=== PATIENT | female | born 1995 | race Caucasian/White ===

== ENCOUNTER 2019-05-26 01:07 | Inpatient (IN) | payer MEDICAID ==
[2019-05-26] MEDS ORDERED: Ondansetron 4 MG/2 ML SDV IVPUSH PRN (01:48)
[2019-05-26] MEDS ORDERED: Sodium Chloride 0.9% 10 ML Syringe FLUSH PRN (01:48)
[2019-05-26] MEDS ORDERED: Oxytocin/Lactated Ringers 10 UNIT/1,000 ML BAG IV SCH (02:00)
[2019-05-26] MEDS ORDERED: Lactated Ringers 1,000 ML IV SCH (02:00)
[2019-05-26] MEDS ORDERED: Nalbuphine 10 MG/ML Syringe IVPUSH PRN (03:44)
--- NOTE | 2019-05-26 06:43 | PCM.LDHP ---
L&D History of Present Illness - General Date of Service: 05/26/19 Admit Problem/Dx: Patient Status Order with Admit Dx/Problem 05/26/19 01:08 Patient Status [ADT] Routine 05/26/19 01:48 Patient Status [ADT] Routine Admission Diagnosis/Problem Admission Diagnosis/Problem Source of Information: Patient History Limitations: Reports: No Limitations - History of Present Illness Introduction:: Patient is a 24 y/o admitted at 39 5/7 wks in labor. Doing well otherwise - Related Data Allergies/Adverse Reactions: Allergies Allergy/AdvReac Type Severity Reaction Status Date / Time Penicillins Allergy Cannot Verified 05/26/19 01:13 Remember Home Medications: Home Meds Iron 18 mg PO 05/26/19 [History] Vits #93/Iron Fum/FA [ Formula Tablet] 05/26/19 [History] Past Medical History - Past Health History Medical/Surgical History: Denies Medical/Surgical History HEENT History: Reports: Impaired Vision, Other (See Below) Other HEENT History: wears glasses [employer] History: Reports: : 1 Para: 0 LMP (Approximate): Social & Family History - Tobacco Use Smoking Status *Q: Former Smoker Used Tobacco, but Quit: Yes Month/Year Tobacco Last Used: 09/2018 - Alcohol Use Alcohol Use History: No - Recreational Drug Use Recreational Drug Use: No H&P Review of Systems - Review of Systems: Review Of Systems: See Below General: Reports: No Symptoms Pulmonary: Reports: No Symptoms Cardiovascular: Reports: No Symptoms Gastrointestinal: Reports: Abdominal Pain Genitourinary: Reports: No Symptoms Musculoskeletal: Reports: No Symptoms Psychiatric: Reports: No Symptoms Neurological: Reports: No Symptoms L&D Exam - Exam Exam: See Below - Vital Signs Vital Signs: Last Vital Signs Temp 37.4 C 05/26/19 01:08 Pulse 76 05/26/19 01:08 Resp 14 05/26/19 01:08 BP 135/66 05/26/19 01:08 Pulse Ox 98 05/26/19 01:08 Weight: 66.451 kg - OB Specific Contraction Intensity: Moderate to Strong Movement: Active Heart Tones: Present Heart Tones per Min: 135 Heart Rate (FHR) Variability: Moderate (6-25 bmp) Presentation: Right Occiput Posterior (ROP) - Taylor Score Taylor Score Cervix Position: Anterior Taylor Score Consistency: Soft Taylor Score Effacement: >80% Taylor Score Dilation: > 5 cm Taylor Score Infant's Station: -1 ,0 Taylor Score Total: 12 - Exam General: Alert, Oriented, Cooperative Lungs: Clear to Auscultation, Normal Respiratory Effort Cardiovascular: Regular Rate, Regular Rhythm GI/Abdominal Exam: Soft, Non-Tender Genitourinary: Normal external exam Extremities: Normal Inspection Skin: Warm, Dry, Intact - Patient Data Lab Results Last 24 hrs: Laboratory Results - last 24 hr 05/26/19 Range/Units 02:00 WBC 14.40 H (3.98-10.04) K/mm3 RBC 3.84 L (3.98-5.22) M/mm3 Hgb 10.7 L (11.2-15.7) gm/dl Hct 32.5 L (34.1-44.9) % MCV 84.6 (79.4-94.8) fl MCH 27.9 (25.6-32.2) pg MCHC 32.9 (32.2-35.5) g/dl RDW Std Deviation 41.5 (36.4-46.3) fL Plt Count 323 (182-369) K/mm3 MPV 9.3 L (9.4-12.3) fl Neut % (Auto) 76.5 H (34.0-71.1) % Lymph % (Auto) 11.7 L (19.3-51.7) % Pratt % (Auto) 10.6 (4.7-12.5) % Eos % (Auto) 0.8 (0.7-5.8) Baso % (Auto) 0.1 (0.1-1.2) % Neut # (Auto) 11.02 H (1.56-6.13) K/mm3 Lymph # (Auto) 1.68 (1.18-3.74) K/mm3 Pratt # (Auto) 1.52 H (0.24-0.36) K/mm3 Eos # (Auto) 0.12 (0.04-0.36) K/mm3 Baso # (Auto) 0.01 (0.01-0.08) K/mm3 Manual Slide Review Abnormal smear Result Diagrams: 05/26/19 02:00 - Problem List (1) 39 weeks gestation of SNOMED Code(s): 69165640 ICD Code: Z3A.39 - 39 WEEKS GESTATION OF Status: Acute Current Visit: Yes (2) Normal labor SNOMED Code(s): 84439050 ICD Code: O80 - ENCOUNTER FOR FULL-TERM UNCOMPLICATED DELIVERY; Z37.9 - OUTCOME OF DELIVERY, UNSPECIFIED Status: Acute Current Visit: Yes (3) Rubella non-immune status, antepartum SNOMED Code(s): 272449410 ICD Code: O99.89 - OTH DISEASES AND CONDITIONS COMPL PREG/CHLDBRTH; Z28.3 - UNDERIMMUNIZATION STATUS Status: Acute Current Visit: Yes Problem List Initiated/Reviewed/Updated: Yes Orders Last 24hrs: Active Orders 24 hr Category Date Time Status Patient Status [ADT] Routine ADT 05/26/19 01:48 Active Activity as Tolerated [RC] PFP Care 05/26/19 01:48 Active Communication Order [RC] ASDIRECTED Care 05/26/19 01:48 Active Non Stress Test [RC] PER UNIT ROUTINE Care 05/26/19 01:08 Active Notify Provider [RC] PFP Care 05/26/19 01:48 Active Notify Provider [RC] PRN Care 05/26/19 01:48 Active Peripheral IV Care [RC] . DIRECTED Care 05/26/19 01:48 Active Vital Signs [RC] PER UNIT ROUTINE Care 05/26/19 01:08 Active Regular Diet [DIET] Diet 05/26/19 Breakfast Active BLOOD BANK HOLD SPECIMEN [BBK] Routine Lab 05/26/19 01:48 Ordered RAPID PLASMA REAGIN,RPR [CHEM] Routine Lab 05/26/19 02:00 Received Lactated Ringers [Ringers, Lactated] 1,000 ml Med 05/26/19 02:00 Active IV ASDIRECTED Nalbuphine [Nubain] Med 05/26/19 03:44 Active 5 mg IVPUSH Q2H PRN Ondansetron [Zofran] Med 05/26/19 01:48 Active 4 mg IVPUSH Q4H PRN Oxytocin/Lactated Ringers [Pitocin in LR 10 Units/1,000 Med 05/26/19 02:00 Active ML] 10 unit in 1,000 ml IV .CONTINUOUS Sodium Chloride 0.9% [Saline Flush] Med 05/26/19 01:48 Active 10 ml FLUSH ASDIRECTED PRN Electronic Heart Tones Ext w TOCO [WOMSER] Oth 05/26/19 01:48 Ordered Routine Electronic Heart Tones Internal [WOMSER] Per Unit Oth 05/26/19 01:48 Ordered Routine Peripheral IV Insertion Adult [OM.PC] Routine Oth 05/26/19 01:48 Ordered Resuscitation Status Routine Resus Stat 05/26/19 01:08 Ordered Medication Orders Lactated Ringer's (Ringers, Lactated) 1,000 mls @ 100 mls/hr IV ASDIRECTED MELINA Oxytocin/Lactated Ringer's (Pitocin In Lr 10 Units/1,000 Ml) 10 unit in 1,000 mls @ 500 mls/hr IV .CONTINUOUS MELINA Nalbuphine HCl (Nubain) 5 mg IVPUSH Q2H PRN PRN Reason: Pain (severe 7-10) Last Admin: 05/26/19 03:50 Dose: 5 mg Ondansetron HCl (Zofran) 4 mg IVPUSH Q4H PRN PRN Reason: Nausea/Vomiting Sodium Chloride (Saline Flush) 10 ml FLUSH ASDIRECTED PRN PRN Reason: Keep Vein Open Assessment/Plan Comment:: * Labs done * GBS negative * Plans unmedicated delivery * Anticipate * MMR after delivery
[2019-05-26] MEDS ORDERED: Lidocaine 1% 50 ML MDV ONE (07:22)
--- NOTE | 2019-05-26 07:47 | PCM.DEL ---
L & D Note - General Info Date of Service: 05/26/19 - Delivery Note Labor: Spontaneous Delivery Outcome: Livebirth Delivery Method: Spontaneous Vaginal Delivery-Single Delivery Mode: Spontaneous Presentation: Right Occiput Posterior (ROP) Nuchal Cord: None Anesthesia Type: None Amniotic Fluid Description: Clear Episiotomy Type: None Laceration: 2nd Degree, Perineal Suture type: Vicryl Suture size: 2-0 Placenta: Intact, Spontaneous Cord: 3 Vessels Estimated Blood Loss: 200 Resuscitation Needed: Yes : Bulb Syringe, Stimulated, Warmed, [place] Used, Warmer Used Delivery Comments (Free Text/Narrative):: Patient found to be complete and began pushing. With maternal pushing effort head delivered from ROP presentation. No nuchal cord present. With gentle downward traction shoulders and body delivered. Infant placed on maternal abdomen. Cord clamped and cut. Cord blood obtained. Placenta allowed time to separate and expelled intact. Inspection of perineum showed a 2nd degree laceration which was repaired with a 2-0 vicryl in the typical fashion - General Info Date of Service: 05/26/19 - Patient Data Vitals - Most Recent: Last Vital Signs Temp 37.4 C 05/26/19 01:08 Pulse 76 05/26/19 01:08 Resp 14 05/26/19 01:08 BP 135/66 05/26/19 01:08 Pulse Ox 98 05/26/19 01:08 Weight - Most Recent: 66.451 kg - Problem List & Annotations (1) 39 weeks gestation of SNOMED Code(s): 25978404 Code(s): Z3A.39 - 39 WEEKS GESTATION OF Status: Acute Current Visit: Yes (2) Normal labor SNOMED Code(s): 41184233 Code(s): O80 - ENCOUNTER FOR FULL-TERM UNCOMPLICATED DELIVERY; Z37.9 - OUTCOME OF DELIVERY, UNSPECIFIED Status: Acute Current Visit: Yes (3) Rubella non-immune status, antepartum SNOMED Code(s): 768354893 Code(s): O99.89 - OTH DISEASES AND CONDITIONS COMPL PREG/CHLDBRTH; Z28.3 - UNDERIMMUNIZATION STATUS Status: Acute Current Visit: Yes (4) Vaginal delivery SNOMED Code(s): 088076914 Code(s): O80 - ENCOUNTER FOR FULL-TERM UNCOMPLICATED DELIVERY Status: Acute Current Visit: Yes - Problem List Review Problem List Initiated/Reviewed/Updated: Yes - My Orders Last 24 Hours: My Active Orders 05/26/19 01:08 Non Stress Test [RC] PER UNIT ROUTINE Vital Signs [RC] PER UNIT ROUTINE Resuscitation Status Routine 05/26/19 01:48 Patient Status [ADT] Routine Activity as Tolerated [RC] PFP Communication Order [RC] ASDIRECTED Notify Provider [RC] PFP Notify Provider [RC] PRN Peripheral IV Care [RC] . DIRECTED BLOOD BANK HOLD SPECIMEN [BBK] Routine Ondansetron [Zofran] 4 mg IVPUSH Q4H PRN Sodium Chloride 0.9% [Saline Flush] 10 ml FLUSH ASDIRECTED PRN Electronic Heart Tones Ext w TOCO [WOMSER] Routine Electronic Heart Tones Internal [WOMSER] Per Unit Routine Peripheral IV Insertion Adult [OM.PC] Routine 05/26/19 02:00 RAPID PLASMA REAGIN,RPR [CHEM] Routine Lactated Ringers [Ringers, Lactated] 1,000 ml IV ASDIRECTED Oxytocin/Lactated Ringers [Pitocin in LR 10 Units/1,000 ML] 10 unit in 1,000 ml IV .CONTINUOUS 05/26/19 03:44 Nalbuphine [Nubain] 5 mg IVPUSH Q2H PRN 05/26/19 Breakfast Regular Diet [DIET] - Assessment Assessment:: PPD#0 - Plan Plan:: Routine cares Breast feeding Discharge home in 1-2 days
[2019-05-26] MEDS ORDERED: Benzocaine/Menthol 20%-0.5% Spray 56 GM Canister TOP PRN (08:13)
[2019-05-26] MEDS ORDERED: Acetaminophen 325 MG Tab PO PRN (08:13)
[2019-05-26] MEDS ORDERED: Docusate Sodium 100 MG Cap PO PRN (08:13)
[2019-05-26] MEDS: Ibuprofen 600 MG Tab PO PRN ×2 (08:38→18:16)
[2019-05-26] MEDS: Witch Hazel Medicated Pads 40/Jar TOP PRN (08:39)
[2019-05-27] MEDS: Ibuprofen 600 MG Tab PO PRN ×2 (00:30→11:14)
[2019-05-27] MEDS: Witch Hazel Medicated Pads 40/Jar TOP PRN (03:11)
--- NOTE | 2019-05-27 07:16 | PCM.PNPP ---
- General Info Date of Service: 05/27/19 Functional Status: Reports: Pain Controlled, Tolerating Diet, Ambulating, Urinating - Review of Systems General: Reports: No Symptoms Pulmonary: Reports: No Symptoms Cardiovascular: Reports: No Symptoms Gastrointestinal: Reports: No Symptoms Genitourinary: Reports: No Symptoms Musculoskeletal: Reports: No Symptoms Neurological: Reports: No Symptoms - Patient Data Vital Signs - Most Recent: Last Vital Signs Temp 37.1 C 05/26/19 19:44 Pulse 79 05/27/19 03:08 Resp 15 05/27/19 03:08 BP 124/69 05/27/19 03:08 Pulse Ox 99 05/27/19 03:08 Weight - Most Recent: 66.451 kg I&O - Last 24 Hours: Intake & Output 05/26/19 05/27/19 05/27/19 22:59 06:59 14:59 Intake Total 60 Balance 60 Lab Results - Last 24 Hours: Laboratory Results - last 24 hr 05/26/19 Range/Units 02:00 RPR Non-reactive (NONREACTIVE) Med Orders - Current: Current Medications Acetaminophen (Tylenol) 650 mg PO Q4H PRN PRN Reason: mild pain or fever Last Admin: 05/27/19 03:14 Dose: 650 mg Benzocaine/Menthol (Dermoplast Pain Relief [place]) 0 gm TOP ASDIRECTED PRN PRN Reason: Perineal Comfort Measure Last Admin: 05/26/19 08:38 Dose: 1 jar Docusate Sodium (Colace) 100 mg PO BID PRN PRN Reason: Constipation Last Admin: 05/26/19 08:38 Dose: 100 mg Ibuprofen (Motrin) 600 mg PO Q6H PRN PRN Reason: Mild pain or fever Last Admin: 05/27/19 00:30 Dose: 600 mg Measles/Mumps/Rubella Vaccine Live (M-M-R Ii Vaccine) 0.5 ml SUBCUT .ONCE ONE Stop: 05/27/19 08:01 Dyana Rush (Tucks) 1 pad TOP ASDIRECTED PRN PRN Reason: Perineal Comfort Measure Last Admin: 05/27/19 03:11 Dose: 1 can Discontinued Medications Lactated Ringer's (Ringers, Lactated) 1,000 mls @ 100 mls/hr IV ASDIRECTED MELINA Oxytocin/Lactated Ringer's (Pitocin In Lr 10 Units/1,000 Ml) 10 unit in 1,000 mls @ 500 mls/hr IV .CONTINUOUS MELINA Last Admin: 05/26/19 07:31 Dose: 500 mls/hr Lidocaine HCl (Xylocaine 1%) Confirm Administered Dose 50 ml .ROUTE .STK-MED ONE Stop: 05/26/19 07:23 Last Admin: 05/26/19 07:50 Dose: 50 ml Nalbuphine HCl (Nubain) 5 mg IVPUSH Q2H PRN PRN Reason: Pain (severe 7-10) Last Admin: 05/26/19 03:50 Dose: 5 mg Ondansetron HCl (Zofran) 4 mg IVPUSH Q4H PRN PRN Reason: Nausea/Vomiting Sodium Chloride (Saline Flush) 10 ml FLUSH ASDIRECTED PRN PRN Reason: Keep Vein Open - Infant Interaction Infant Disposition, : [place] in Room with Family Infant Interaction: Holding Infant Infant Feeding: Attempted ; Nursed Fair/Poor Support Person: Significant Other - Recovery Exam Fundal Tone: Firm Fundal Level: 2 Fingerbreadths Below Umbilicus Lochia Amount: Small Lochia Color: Rubra/Red Perineum Description: Edematous Episiotomy/Laceration: Approximated Bladder Status: Voiding - Exam General: Alert, Oriented, Cooperative GI/Abdominal Exam: Soft, Non-Tender Extremities: Normal Inspection Skin: Warm, Dry, Intact - Problem List & Annotations (1) 39 weeks gestation of SNOMED Code(s): 76898133 Code(s): Z3A.39 - 39 WEEKS GESTATION OF Status: Acute Current Visit: Yes (2) Normal labor SNOMED Code(s): 29447704 Code(s): O80 - ENCOUNTER FOR FULL-TERM UNCOMPLICATED DELIVERY; Z37.9 - OUTCOME OF DELIVERY, UNSPECIFIED Status: Acute Current Visit: Yes (3) Rubella non-immune status, antepartum SNOMED Code(s): 260149885 Code(s): O99.89 - OTH DISEASES AND CONDITIONS COMPL PREG/CHLDBRTH; Z28.3 - UNDERIMMUNIZATION STATUS Status: Acute Current Visit: Yes (4) Vaginal delivery SNOMED Code(s): 240021526 Code(s): O80 - ENCOUNTER FOR FULL-TERM UNCOMPLICATED DELIVERY Status: Acute Current Visit: Yes - Problem List Review Problem List Initiated/Reviewed/Updated: Yes - My Orders Last 24 Hours: My Active Orders 05/26/19 08:13 Activity as Tolerated [RC] PER UNIT ROUTINE Up ad Colleen [RC] ASDIRECTED Vital Signs [RC] 09,15,21,03 Acetaminophen [Tylenol] 650 mg PO Q4H PRN Benzocaine/Menthol [Dermoplast Pain Relief [place]] See Dose Instructions TOP ASDIRECTED PRN Docusate Sodium [Colace] 100 mg PO BID PRN Ibuprofen [Motrin] 600 mg PO Q6H PRN witch Sunny [Tucks] 1 pad TOP ASDIRECTED PRN Assess Lochia [WOMSER] Per Unit Routine Assess Uterine Involution [WOMSER] Per Unit Routine Breast Pump [WOMSER] Per Unit Routine Heat Therapy [OM.PC] PRN Ice Therapy [OM.PC] Per Unit Routine Perineal Care [OM.PC] Per Unit Routine Peripheral IV Discontinue [OM.PC] Routine Sitz Bath [OM.PC] Per Unit Routine 05/26/19 11:35 Vaccines to be Administered [RC] PER UNIT ROUTINE 05/26/19 Breakfast Regular Diet [DIET] 05/27/19 08:00 Measles, Mumps & Rubella [M-M-R II Vaccine] 0.5 ml SUBCUT .ONCE ONE 05/27/19 08:13 Heat Therapy [OM.PC] PRN - Assessment Assessment:: PPD#1 - Plan Plan:: Routine cares Breast feeding Discharge home today vs tomorrow pending clinical course
[2019-05-27] MEDS ORDERED: Measles, Mumps & Rubella Vaccine 0.5 ML SDV SUBCUT ONE (08:00)
--- NOTE | 2019-05-27 15:36 | PCM.DCSUM1 ---
Discharge Summary - Discharge Data Discharge Date: 05/27/19 Discharge Disposition: Home, Self-Care 01 Condition: Good - Referral to Home Health Primary Care Physician: Audrey Calderon MD - Discharge Diagnosis/Problem(s) (1) 39 weeks gestation of SNOMED Code(s): 12332795 ICD Code: Z3A.39 - 39 WEEKS GESTATION OF Status: Acute (2) Normal labor SNOMED Code(s): 03969997 ICD Code: O80 - ENCOUNTER FOR FULL-TERM UNCOMPLICATED DELIVERY; Z37.9 - OUTCOME OF DELIVERY, UNSPECIFIED Status: Acute (3) Rubella non-immune status, antepartum SNOMED Code(s): 940881969 ICD Code: O99.89 - OTH DISEASES AND CONDITIONS COMPL PREG/CHLDBRTH; Z28.3 - UNDERIMMUNIZATION STATUS Status: Acute (4) Vaginal delivery SNOMED Code(s): 221386348 ICD Code: O80 - ENCOUNTER FOR FULL-TERM UNCOMPLICATED DELIVERY Status: Acute - Patient Summary/Data Complications: None Consults: None Recommended Follow-up Testing/Procedures: Follow up in 3 weeks for check Hospital Course: 24 y/o admitted at 39 5/7 wks in labor. Did well and progressed to complete dilation without augmentation. Underwent an uncomplicated . See delivery note. did well and was discharged home on PPD#1 - Patient Instructions Diet: Regular Diet as Tolerated Activity: As Tolerated Activity, Other: Pelvic rest for 6 weeks Driving: May Drive Today Showering/Bathing: May Shower Showering/Bathing, Other: May Bathe Notify Provider of: Fever, Increased Pain, Swelling and Redness, Drainage, Nausea and/or Vomiting - Discharge Plan *PRESCRIPTION DRUG MONITORING PROGRAM REVIEWED*: No *COPY OF PRESCRIPTION DRUG MONITORING REPORT IN PATIENT XIOMARA: No Home Medications: Home Meds Vits #93/Iron Fum/FA [ Formula Tablet] 05/26/19 [History] Docusate Sodium [Colace] 100 mg PO BID PRN cap 05/27/19 [Rx] Ibuprofen [Motrin] 600 mg PO Q6H PRN tablet 05/27/19 [Rx] Patient Handouts: and Inducing , Care After Vaginal Delivery, and Cracked or Sore Nipples, [id number] Referrals: Audrey Calderon MD [Primary Care Provider] - (3 weeks for check ) - Discharge Summary/Plan Comment DC Time >30 min.: No - Patient Data Vitals - Most Recent: Last Vital Signs Temp 36.2 C 05/27/19 14:52 Pulse 69 05/27/19 14:52 Resp 16 05/27/19 15:00 BP 113/78 05/27/19 14:52 Pulse Ox 99 05/27/19 14:52 Weight - Most Recent: 66.451 kg I&O - Last 24 hours: Intake & Output 05/27/19 05/27/19 05/27/19 06:59 14:59 22:59 Intake Total 300 Balance 300 Lab Results - Last 24 hrs: Laboratory Results - last 24 hr 05/26/19 Range/Units 02:00 RPR Non-reactive (NONREACTIVE) Med Orders - Current: Current Medications Acetaminophen (Tylenol) 650 mg PO Q4H PRN PRN Reason: mild pain or fever Last Admin: 05/27/19 03:14 Dose: 650 mg Benzocaine/Menthol (Dermoplast Pain Relief [place]) 0 gm TOP ASDIRECTED PRN PRN Reason: Perineal Comfort Measure Last Admin: 05/26/19 08:38 Dose: 1 jar Docusate Sodium (Colace) 100 mg PO BID PRN PRN Reason: Constipation Last Admin: 05/26/19 08:38 Dose: 100 mg Ibuprofen (Motrin) 600 mg PO Q6H PRN PRN Reason: Mild pain or fever Last Admin: 05/27/19 11:14 Dose: 600 mg Witch Adri (Tucks) 1 pad TOP ASDIRECTED PRN PRN Reason: Perineal Comfort Measure Last Admin: 05/27/19 03:11 Dose: 1 can Discontinued Medications Lactated Ringer's (Ringers, Lactated) 1,000 mls @ 100 mls/hr IV ASDIRECTED MELINA Oxytocin/Lactated Ringer's (Pitocin In Lr 10 Units/1,000 Ml) 10 unit in 1,000 mls @ 500 mls/hr IV .CONTINUOUS MELINA Last Admin: 05/26/19 07:31 Dose: 500 mls/hr Lidocaine HCl (Xylocaine 1%) Confirm Administered Dose 50 ml .ROUTE .STK-MED ONE Stop: 05/26/19 07:23 Last Admin: 05/26/19 07:50 Dose: 50 ml Measles/Mumps/Rubella Vaccine Live (M-M-R Ii Vaccine) 0.5 ml SUBCUT .ONCE ONE Stop: 05/27/19 08:01 Last Admin: 05/27/19 13:10 Dose: 0.5 ml Nalbuphine HCl (Nubain) 5 mg IVPUSH Q2H PRN PRN Reason: Pain (severe 7-10) Last Admin: 05/26/19 03:50 Dose: 5 mg Ondansetron HCl (Zofran) 4 mg IVPUSH Q4H PRN PRN Reason: Nausea/Vomiting Sodium Chloride (Saline Flush) 10 ml FLUSH ASDIRECTED PRN PRN Reason: Keep Vein Open
== END 2019-05-27 15:40 | disposition home or self-care (01) | DRG 807 ==
LOC: JD.OB 01:07 → JD.OBCHECK 01:07 → JD.OB 01:48 → OBSVTOIN 07:30 → JD.OB 07:31
PROVIDERS: ADMIT Obstetrics & Gynecology; ATTEND Obstetrics & Gynecology
PROC: 0KQM0ZZ Repair Perineum Muscle, Open Approach (ICD-10-PCS; principal; 2019-05-26)
PROC: 10E0XZZ Delivery of Products of Conception, External Approach (ICD-10-PCS; principal; 2019-05-26)
DX: O70.1 Second degree perineal laceration during delivery (principal); Z37.0 Single live birth; Z3A.39 39 weeks gestation of pregnancy
CPT/HCPCS: 36415; 59025; 59409; 85025; 86592; 90471; 90707; A9270-GY; J2001; J2300; J2590

== ENCOUNTER 2019-11-15 16:23 | Emergency (ER) | payer MEDICAID ==
[2019-11-15] MEDS ORDERED: Ketorolac 30 MG/ML SDV IVPUSH ONE (17:00)
[2019-11-15] MEDS ORDERED: Sodium Chloride 0.9% 10 ML Syringe FLUSH PRN (17:00)
[2019-11-15] MEDS ORDERED: Prochlorperazine 10 MG/2 ML SDV IVPUSH ONE (17:00)
[2019-11-15] MEDS ORDERED: diphenhydrAMINE 50 MG/ML SDV IVPUSH ONE (17:01)
--- NOTE | 2019-11-15 18:03 | CT ---
Head CT Technique: Multiple axial sections through the brain were obtained. Intravenous contrast was not utilized. Comparison: No prior intracranial imaging is available. Findings: Ventricles along with basal cisterns and sulci over the convexities appear within normal limits for the patient's age. No abnormal parenchymal densities are seen. No evidence of intracranial hemorrhage. No midline shift or mass-effect is seen. Bone window settings were reviewed. Visualized paranasal sinuses show nothing acute. Visualized mastoid sinuses show nothing acute. No acute calvarial finding is appreciated. Impression: 1. Nothing acute is appreciated on noncontrast head CT exam. Diagnostic code #1 This report was dictated in MDT
--- NOTE | 2019-11-15 18:18 | EDM.PDOC ---
ED HPI GENERAL MEDICAL PROBLEM - General Chief Complaint: Headache Stated Complaint: MIGRAINE/DIZZY/NAUSEOUS Time Seen by Provider: 11/15/19 16:35 Source of Information: Reports: Patient History Limitations: Reports: No Limitations - History of Present Illness INITIAL COMMENTS - FREE TEXT/NARRATIVE: The patient present with a headache, nausea and chest pain. This all started y esterday with a severe headache with nausea. She normally does not get headaches. She developed some chest pain today. She has no history of heart problems. She has no shortness of breath, cough, fever or chills. She does have some photophobia. She has no abdominal pain. She has no numbness or weakness. Onset: Gradual Duration: Day(s): (2) Location: Reports: Head Quality: Reports: Sharp Severity: Severe Improves with: Reports: None Worsens with: Reports: None Associated Symptoms: Reports: Headaches, Nausea/Vomiting. 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 Denies: Abdominal Pain, Vomiting : Reports: No Symptoms - Physical Exam Exam: See Below Exam Limited By: No Limitations General Appearance: Alert, No Apparent Distress Ears: Normal External Exam Nose: Normal Inspection Head Exam: Atraumatic, Normocephalic Neck: Normal Inspection Respiratory/Chest: No Respiratory Distress, Lungs Clear, Normal Breath Sounds Cardiovascular: Regular Rate, Rhythm, No Edema, No Murmur GI/Abdominal: Soft, Non-Tender, No Organomegaly, No Mass Neuro Exam (Abbreviated): Alert, Oriented, No Motor/Sensory Deficits EKG INTERPRETATION EKG Date: 11/15/19 Time: 16:43 Rhythm: NSR Rate (Beats/Min): [address] [place]: Normal P-Wave: Present QRS: Normal ST-T: Normal QT: Normal Course - Vital Signs Last Recorded V/S: Last Vital Signs Temp 97.4 F 11/15/19 16:34 Pulse 78 11/15/19 16:34 Resp 16 11/15/19 16:34 BP 147/72 H 11/15/19 16:34 Pulse Ox 97 11/15/19 16:34 - Orders/Labs/Meds Orders: Active Orders 24 hr Category Date Time Status EKG 12 Lead [EKG Documentation Completion] [RC] STAT Care 11/15/19 16:46 Active Peripheral IV Care [RC] . DIRECTED Care 11/15/19 17:00 Active Sodium Chloride 0.9% [Saline Flush] Med 11/15/19 17:00 Active 10 ml FLUSH ASDIRECTED PRN Peripheral IV Insertion Adult [OM.PC] Routine Oth 11/15/19 17:00 Ordered Medication Orders Sodium Chloride (Saline Flush) 10 ml FLUSH ASDIRECTED PRN PRN Reason: Keep Vein Open Last Admin: 11/15/19 17:12 Dose: 10 ml Documented by: MAC Meds: Medications Generic Name Dose Route Start Last Admin Trade Name Freq PRN Reason Stop Dose Admin Sodium Chloride 10 ml 11/15/19 17:00 11/15/19 17:12 Saline Flush FLUSH 10 ml ASDIRECTED PRN Administration Keep Vein Open Discontinued Medications Generic Name Dose Route Start Last Admin Trade Name Freq PRN Reason Stop Dose Admin Diphenhydramine HCl 50 mg 11/15/19 17:01 11/15/19 17:10 Benadryl IVPUSH 11/15/19 17:02 50 mg ONETIME ONE Administration Ketorolac Tromethamine 30 mg 11/15/19 17:00 11/15/19 17:11 Toradol IVPUSH 11/15/19 17:01 30 mg ONETIME ONE Administration Prochlorperazine Edisylate 10 mg 11/15/19 17:00 11/15/19 17:11 Compazine IVPUSH 11/15/19 17:01 10 mg ONETIME ONE Administration - Re-Assessments/Exams Free Text/Narrative Re-Assessment/Exam: 11/15/19 18:18 I ordered an IV saline lock, toradol 30mg IV, benadryl 50mg IV, compazine 10mg IV and a CT of her head. The CT of her head looks good. She is feeling better. I will discharge her home. Departure - Departure Time of Disposition: 18:30 Disposition: Home, Self-Care 01 Condition: Good Clinical Impression: Migraine, Atypical chest pain - Discharge Information *PRESCRIPTION DRUG MONITORING PROGRAM REVIEWED*: Not Applicable *COPY OF PRESCRIPTION DRUG MONITORING REPORT IN PATIENT [id number]: Not Applicable Referrals: Audrey Calderon MD [Primary Care Provider] - Forms: ED Department Discharge Additional Instructions: Go home and rest. Take tylenol or motrin as needed for pain. Please return if you are worse. Sepsis Event Note (ED) - Evaluation Sepsis Screening Result: No Definite Risk - Focused Exam Vital Signs: Vital Signs Temp Pulse Resp BP Pulse Ox 11/15/19 16:34 97.4 F 78 16 147/72 H 97 - My Orders Last 24 Hours: My Active Orders 11/15/19 16:46 EKG 12 Lead [EKG Documentation Completion] [RC] STAT 11/15/19 17:00 Peripheral IV Care [RC] . DIRECTED Sodium Chloride 0.9% [Saline Flush] 10 ml FLUSH ASDIRECTED PRN Peripheral IV Insertion Adult [OM.PC] Routine - Assessment/Plan Last 24 Hours: My Active Orders 11/15/19 16:46 EKG 12 Lead [EKG Documentation Completion] [RC] STAT 11/15/19 17:00 Peripheral IV Care [RC] . DIRECTED Sodium Chloride 0.9% [Saline Flush] 10 ml FLUSH ASDIRECTED PRN Peripheral IV Insertion Adult [OM.PC] Routine
== END 2019-11-15 18:41 | disposition home or self-care (01) ==
LOC: JD.ED 16:23
DX: G43.909 Migraine, unspecified, not intractable, without status migrainosus (principal); R07.89 Other chest pain; Z88.0 Allergy status to penicillin; Z87.891 Personal history of nicotine dependence
CPT/HCPCS: 70450; 93005; 96374; 96375; 99285; J0780; J1200; J1885; 93010; 99284